=== PATIENT | male | born 1990 | race Caucasian/White ===

== ENCOUNTER 2019-03-03 21:51 | Emergency (ER) | payer OTHER ==
[~2019-03-03] VITALS: Ht 182.9 cm; Wt 113.4 kg
[~2019-03-03 21:51] MED LIST: RITALIN LA20 MG PO
[2019-03-03 22:29] LABS: URINE BLOOD NEGATIVE (Negative); URINE CLARITY CLEAR; URINE COLOR YELLOW; URINE GLUCOSE-RANDOM NEGATIVE (Negative); URINE KETONES TRACE (Negative); URINE LEUKOCYTES-REFLEX TRACE (Negative); URINE NITRITE-REFLEX NEGATIVE (Negative); URINE PROTEIN TRACE (Negative); URINE SPECIFIC GRAVITY >= 1.030 (1.005-1.030); URINE UROBILINOGEN 0.2 E.U./dl (0.2-1.0)
[2019-03-03 22:33] LABS: URINE BILIRUBIN 1+ (Negative)
[2019-03-03 22:35] LABS: ICTOTEST (BILI CONFIRMATORY) Positive (Negative)
[2019-03-03 22:46] LABS: CASTS None Seen /LPF (None Seen); MUCUS >6 Heavy strn/LPF (None Seen); SQUAMOUS NONE SEEN /LPF (0-3)
[2019-03-03 22:47] LABS: CRYSTALS None Seen /LPF (None Seen); URINE RBC None Seen /HPF (0-2)
[2019-03-03] MEDS ORDERED: DOXYCYCLINE 10100 MG PO (23:29)
[2019-03-03] MEDS ORDERED: IBUPROFEN 800800 M1 PO (23:29)
[2019-03-03 23:40] VITALS: BP 135/81
== END 2019-03-03 23:40 | disposition home or self-care (01) ==
LOC: M.ERS 21:51
PROVIDERS: Emergency Medicine
DX: N45.1 Epididymitis (principal)

== ENCOUNTER 2019-09-28 11:09 | Emergency (ER) | payer OTHER ==
[~2019-09-28] VITALS: Ht 182.9 cm; Wt 99.8 kg
[~2019-09-28 11:09] MED LIST changes: +DOXYCYCLINE 10100 MG PO; +IBUPROFEN 800800 M1 PO
[2019-09-28 11:38] LABS: URINE BILIRUBIN NEGATIVE (Negative); URINE BLOOD 1+ (Negative); URINE CLARITY CLEAR; URINE COLOR YELLOW; URINE GLUCOSE-RANDOM NEGATIVE (Negative); URINE KETONES NEGATIVE (Negative); URINE NITRITE-REFLEX NEGATIVE (Negative); URINE PROTEIN NEGATIVE (Negative); URINE SPECIFIC GRAVITY 1.025 (1.005-1.030); URINE UROBILINOGEN 0.2 E.U./dl (0.2-1.0)
[2019-09-28] MEDS ORDERED: AZITHROMYCIN 2250 MG PO (11:39)
[2019-09-28] MEDS ORDERED: SUPRAX400 M1 PO (11:39)
[2019-09-28 11:46] VITALS: BP 130/75
[2019-09-28 11:47] LABS: URINE LEUKOCYTES-REFLEX 2+ (Negative)
[2019-09-28 12:06] LABS: BACTERIA-REFLEX 1-9 Few /HPF (None Seen); CASTS None Seen /LPF (None Seen); CRYSTALS None Seen /LPF (None Seen); SQUAMOUS 0-3 Few /LPF (0-3); URINE RBC 0-2 Rare /HPF (0-2); URINE WBC-REFLEX 0-5 Rare /HPF (0-5)
== END 2019-09-28 11:47 | disposition home or self-care (01) ==
LOC: M.ERS 11:09
PROVIDERS: Family Medicine
DX: R36.9 Urethral discharge, unspecified (principal)

== ENCOUNTER 2020-12-02 09:38 | Emergency (ER) | payer OTHER ==
[~2020-12-02] VITALS: Ht 188 cm; Wt 108.9 kg
[~2020-12-02 09:38] MED LIST changes: +AZITHROMYCIN 2250 MG PO; +SUPRAX400 M1 PO
[2020-12-02 10:55] LABS: ABSOLUTE BASOPHILS 0.1 thou/uL (0.0-0.2); ABSOLUTE EOSINOPHILS 0.2 thou/uL (0.0-0.7); ABSOLUTE LYMPHOCYTES 2.3 thou/uL (0.8-5.3); ABSOLUTE MONOCYTES 0.3 thou/uL (0.0-1.2); ABSOLUTE NEUTROPHILS 2.5 thou/uL (1.6-8.1); EOSINOPHILS 3.8 %; HEMATOCRIT 41.8 % (42.0-52.0); HEMOGLOBIN 13.8 gm/dL (14.0-18.0); LYMPHOCYTES 42.9 %; MCH 28.9 pg (26.0-34.0); MCHC 33.1 g/dL (28.0-37.0); MCV 87.4 fL (80.0-100.0); MPV 7.1 fl. (7.2-11.1); NUCLEATED RBCS 0 /100WBC; PLATELET COUNT* 159 thou/uL (150-400); POLYS 46.3 %; RBC 4.78 mil/uL (4.50-6.00); RDW-CV 12.7 % (10.5-14.5); WBC 5.4 thou/uL (4.0-11.0)
[2020-12-02 11:02] LABS: CALCIUM 8.7 mg/dL (8.5-10.1); CREATININE 0.8 mg/dL (0.6-1.3); POTASSIUM 3.8 mmol/L (3.5-5.1)
[2020-12-02 11:07] LABS: ALBUMIN 3.7 g/dL (3.4-5.0); TOTAL BILIRUBIN 0.3 mg/dL (<0.1-1.0); TOTAL PROTEIN 7.1 g/dL (6.4-8.2)
[2020-12-02 11:55] VITALS: BP 148/72
== END 2020-12-02 11:55 | disposition home or self-care (01) ==
LOC: M.ERS 09:38
PROVIDERS: Physician Assistant
DX: R52 Pain, unspecified (principal); Z20.822 Contact with and (suspected) exposure to COVID-19; R53.1 Weakness; Z79.899 Other long term (current) drug therapy; Z79.2 Long term (current) use of antibiotics